=== PATIENT | male | born 1970 | race Caucasian/White ===

== ENCOUNTER 2017-11-23 17:30 | Emergency (ER) | payer OTHER ==
[2017-11-23] MEDS: ACETAMINOPHEN 325 MG TAB PO (19:48)
[2017-11-23] MEDS: IBUPROFEN 200 MG TAB PO (19:49)
== END 2017-11-23 21:37 | disposition home or self-care (01) ==
LOC: FTE 17:30
DX: S39.012A Strain of muscle, fascia and tendon of lower back, initial encounter (principal); V49.49XA Driver injured in collision with other motor vehicles in traffic accident, initial encounter
CPT/HCPCS: 72040; 72072; 72100; 99284-25